=== PATIENT | female | born 1970 | race Caucasian/White ===

== ENCOUNTER → 2017-06-08 | Outpatient (CLI) | payer OTHER | LOC: CIMAGING 12:40 | PROVIDERS: ATTEND Specialist | DX: R31.29 Other microscopic hematuria (principal) | CPT/HCPCS: 76770-PO ==

== ENCOUNTER → 2017-06-09 | Outpatient (CLI) | payer OTHER | LOC: MERGE 10:21 → BMCIMAGING 10:21 | PROVIDERS: ATTEND Internal Medicine Hematology & Oncology | DX: Z12.39 Encounter for other screening for malignant neoplasm of breast (principal); Z85.3 Personal history of malignant neoplasm of breast | CPT/HCPCS: G0206 ==